=== PATIENT | female | born 1985 ===

== ENCOUNTER 2023-11-26 13:40 | Outpatient (AMB) | payer OTHER, SELFPAY ==
--- NOTE | 2023-11-26 13:43 | MHC.OFFWIV ---
Intake Vital Signs 11/26/23 13:44 Height 5 ft 5 in Weight 211 lb BMI 35.1 BP 124/80 Blood Pressure Location Rt brachial Position Sitting Respiration 13 Pulse 89 Pulse Source Pulse Oximeter Pulse Oximetry (%) 99 Oxygen Delivery Method Room Air Intake Visit Reasons: rash Intake Note: Patient reports a rash x2 weeks starting on the abdomen and spreading to extremities and neck. Patient reports she has been felling fatigued, stressed and itching. Patient reports the rash is raised, red and dry. Patient states she tried using a topical steroid cream which did not help. Patient Tobacco Use Status: Former Tobacco user [employer] Required: No Accompanied by: Self / Same As Patient Allergies No Known Allergies Allergy (Verified 11/26/23 13:56) Medication List - Last Reconciled 11/26/23 by GUERA Mireles No Known Home Meds Do you need a note to return to daycare/school/sports/work: No HPI HPI Comments History of Present Illness Details Here today c/o rash present for about the last 2 weeks. Reports a lesion appearing on her back that was itchy. After that, the rash spread across her back to her abd and upper chest wall. The rash extends around her hips spares her face, oral mucosa, palms and soles Denies fever, chill, exposure to allergic contacts/agents or others with similar rash. She has not traveled. To tx has been taking benadryl and son's steroid eczema cream w/ little relief. PFSH Social History Patient Tobacco Use Status: Former Tobacco user Review of Systems Const All systems reviewed & are unremarkable except as noted in HPI and below Physical Exam Const Other: awake alert NAD Speaking in full sentences On back is a pink, erythematous oval plaque with raised border and slight scaling c/w a herald patch on her back, chest, shoulders and hips in a fir tree pattern are similar plaques albeit smaller. Assessment & Plan Assessment & Plan (1) Pityriasis rosea: Code(s): L42 - Pityriasis rosea Plan: . Medications: New prednisone 5 tabs x 2 days, 4 tabs x 2 days, 3 tabs x 2 days, 2 tabs x 2 days, 1 tab x 2 days and then STOP. 10 mg PO DIRECTED 10 days 30 tabs 0RF Patient Instructions: Reassured about the rash. Self limiting. Topical emollients can be helpful to diminish the appearance of scaling. benadryl PRN is ok, use OTC. Will give a steroid course to speed up recovery. ok to use something like sarna anti-itch PRN. If rash cont or does not improve should seek addl care Coding Level of Care Code Est Pt Level 3 (26165) Diagnoses Pityriasis rosea L42
[2023-11-26 13:44] VITALS: BP 124/80; PULSE 89; RESP 13; O2SAT 99; BMI 35.1
== END 2023-11-26 14:02 | disposition home or self-care (01) ==
PROVIDERS: Visit Provider Nurse Practitioner Family
DX: L42 Pityriasis rosea (principal)
CPT/HCPCS: 99213